=== PATIENT | female | born 1970 | race Two or more races ===

== ENCOUNTER 2024-11-07 10:12 | Inpatient (IN) | payer BC ==
[~2024-11-07] VITALS: Ht 162.6 cm; Wt 71.0 kg
[2024-11-07 11:39] LABS: BASOPHILS % 0.6 % (0.0-2.0); DIFFERENTIAL COMMENT 0; EOSINOPHILS % 2.2 % (0.0-5.0); HEMATOCRIT. 46.8 % (36.0-48.0); HEMOGLOBIN. 15.7 g/dL (12.0-16.0); LYMPHOCYTES % 28.4 % (20.0-50.0); MEAN CORPUSCULAR HEMOGLOBIN 33.1 pg (28.0-32.0); MEAN CORPUSCULAR HGB CONC 33.6 g/dL (31.0-37.0); MEAN CORPUSCULAR VOLUME 98.4 fL (81.0-99.0); MEAN PLATELET VOLUME 10.9 fl (7.4-10.4); MONOCYTES % 13.2 % (2.0-8.0); NEUTROPHILS % 55.6 % (40.0-76.0); PLATELET 183 x1000/uL (130-400); RED BLOOD CELL COUNT 4.75 mill/uL (4.2-5.4); RED CELL DISTRIBUTION WIDTH 13.5 % (11.6-14.6); WHITE BLOOD COUNT 8.5 x1000/uL (4.5-11.0)
[2024-11-07] MEDS: PREDNISONE 20MG TABLET PO ONE (11:43)
[2024-11-07 11:49] LABS: CHLORIDE 108 mEq/L (98-107); POTASSIUM 3.6 mEq/L (3.5-5.1); SODIUM 140 mEq/L (136-145)
[2024-11-07 11:50] LABS: CARBON DIOXIDE 25 mEq/L (21-32)
[2024-11-07 11:51] LABS: CALCIUM 9.1 mg/dL (8.7-10.4)
[2024-11-07 11:55] LABS: CREATININE 0.8 mg/dL (0.6-1.0); GLUCOSE 101 mg/dL (70-105); UREA NITROGEN BLOOD 12 mg/dL (9-23)
[2024-11-07 11:56] LABS: TROPONIN I HIGH SENSITIVITY 17 ng/L (3.0-34)
[2024-11-07] MEDS: FLUTICASONE PROPIONATE 50MCG/SPRAY BOTTLE BOTHNSTRLS STA (12:37)
[2024-11-07] MEDS ORDERED: ONDANSETRON HCL 4MG/2ML INJ IV PRN (13:00)
[2024-11-07] MEDS ORDERED: MAGNESIUM/ALUMINUM HYDROXIDE/SIMETHICONE 30ML UDC PO PRN (13:00)
[2024-11-07] MEDS ORDERED: IPRATROPIUM/ALBUTEROL 0.5-3(2.5)MG/3ML NEB HHN PRN (13:00)
[2024-11-07] MEDS ORDERED: DOCUSATE SODIUM 100MG CAPSULE PO PRN (13:00)
[2024-11-07] MEDS ORDERED: ACETAMINOPHEN 325MG TABLET PO PRN ×2 (13:00)
[2024-11-07] MEDS: METHYLPREDNISOLONE SOD SUCC 125MG/2ML (ACT-O-VIAL) IV SCH (14:28)
[2024-11-07 16:30] VITALS: BP 153/66; PULSE 84; RESP 18; TEMP 36.8; O2SAT 96
[2024-11-07 20:00] VITALS: BP 93/61; PULSE 64; RESP 20; TEMP 36.4; O2SAT 100
[2024-11-07 22:13] LABS: CREATINE KINASE MB FRACTION 13.8 ng/mL (0.5-3.6)
[2024-11-08] VITALS (8 sets, daily range): BP systolic 142–168; BP diastolic 59–69; PULSE 63–77; RESP 18–24; TEMP 34.8–37.1; O2SAT 94–100
[2024-11-08] MEDS: GUAIFENESIN 200MG/10ML SUGAR FREE UDC PO PRN (00:24)
[2024-11-08] MEDS: CLONIDINE 0.1MG TABLET PO PRN (00:34)
[2024-11-08] MEDS: BUDESONIDE 0.5MG/2ML NEB HHN SCH (01:00)
[2024-11-08] MEDS: IPRATROPIUM/ALBUTEROL 0.5-3(2.5)MG/3ML NEB HHN PRN (06:00)
[2024-11-08 06:52] LABS: HEMATOCRIT 46.6 % (36.0-48.0); HEMOGLOBIN 15.7 g/dL (12.0-16.0); MEAN CORPUSCULAR HEMOGLOBIN 32.9 pg (28.0-32.0); MEAN CORPUSCULAR HGB CONC 33.8 g/dL (31.0-37.0); MEAN CORPUSCULAR VOLUME 97.3 fL (81.0-99.0); PLATELET 199 x1000/uL (130-400); RED BLOOD CELL COUNT 4.79 mill/uL (4.2-5.4); RED CELL DISTRIBUTION WIDTH 13.3 % (11.6-14.6); WHITE BLOOD COUNT 9.6 x1000/uL (4.5-11.0)
[2024-11-08 07:00] LABS: CREATINE KINASE MB FRACTION 11.2 ng/mL (0.5-3.6)
[2024-11-08 07:01] LABS: TROPONIN I HIGH SENSITIVITY 8 ng/L (3.0-34)
[2024-11-08 07:04] LABS: T4 FREE 1.24 ng/dL (0.89-1.76); THYROID STIMULATING HORMONE 0.14 uIU/mL (0.55-4.78)
[2024-11-08 07:14] LABS: CHLORIDE 108 mEq/L (98-107); POTASSIUM 4.7 mEq/L (3.5-5.1); SODIUM 142 mEq/L (136-145)
[2024-11-08 07:16] LABS: CALCIUM 9.8 mg/dL (8.7-10.4); CARBON DIOXIDE 25 mEq/L (21-32)
[2024-11-08 07:20] LABS: UREA NITROGEN BLOOD 17 mg/dL (9-23)
[2024-11-08 07:21] LABS: CREATININE 0.8 mg/dL (0.6-1.0); GLUCOSE 127 mg/dL (70-105); TRIGLYCERIDE 48 mg/dL (0-150)
[2024-11-08 07:22] LABS: LDL CHOLESTEROL 102 mg/dL (5-100); PROTEIN TOTAL 7.1 g/dL (6.0-8.3)
[2024-11-08 07:23] LABS: ALANINE AMINOTRANSFERASE 13 IU/L (10-49); ALBUMIN 4.2 g/dL (3.2-4.8); ASPARTATE AMINOTRANSFERASE 18 IU/L (<34); BILIRUBIN TOTAL 0.2 mg/dL (0.1-1.0); CHOLESTEROL 194 mg/dL (<200); CREATINE KINASE 245 IU/L (34-145); HDL CHOLESTEROL 68 mg/dL (>65); PHOSPHORUS 3.3 mg/dL (2.5-4.9)
[2024-11-08] MEDS: AMLODIPINE 5MG TABLET PO SCH (08:40)
[2024-11-08] MEDS ORDERED: MONT-46 MT (15:27)
[2024-11-08] MEDS ORDERED: BUDE6.9H INH (15:27)
[2024-11-08] MEDS ORDERED: AMLO10TA4 MT (15:27)
[2024-11-08] MEDS: INFLUENZA VACCINE 05/PF 0.5 ML SYRINGE IM ONE (18:09)
== END 2024-11-08 18:45 | disposition home or self-care (01) | DRG 189 ==
LOC: ER 10:12 → 7WST 11:50
PROVIDERS: ADMIT Hospitalist; ATTEND Hospitalist
DX: J96.01 Acute respiratory failure with hypoxia (principal); J45.901 Unspecified asthma with (acute) exacerbation; I16.0 Hypertensive urgency; J44.89 Other specified chronic obstructive pulmonary disease; F17.210 Nicotine dependence, cigarettes, uncomplicated; I10 Essential (primary) hypertension; Z20.822 Contact with and (suspected) exposure to COVID-19
CPT/HCPCS: 36415; 71045; 80048; 80053; 80061; 82550; 82553; 83036; 83735; 83880; 84100; 84439; 84443; 84484; 85025; 85027; 87426; 87804; 90686; 93005; 93970; 94640; 94760; 99285; C1893; J2919; J7512; J7626

== ENCOUNTER 2025-01-14 09:35 | Emergency (ER) | payer BC ==
[~2025-01-14] VITALS: Ht 172.7 cm; Wt 70.0 kg
[~2025-01-14 09:35] MED LIST: AMLO10TA4 MT; BUDE6.9H INH; MONT-46 MT
[2025-01-14 09:37] VITALS: BP 159/75; TEMP 36.8
[2025-01-14] MEDS: PREDNISONE 20MG TABLET PO STA (10:29)
[2025-01-14] MEDS: IPRATROPIUM BROMIDE (0.02%) 0.5MG/2.5ML NEB HHN STA (10:37)
[2025-01-14 10:38] VITALS: PULSE 53; RESP 18; O2SAT 95
[2025-01-14] MEDS: ALBUTEROL (0.083%) 2.5MG/3ML NEB HHN STA (10:38)
== END 2025-01-14 11:33 | disposition home or self-care (01) ==
LOC: ER 09:35
DX: J06.9 Acute upper respiratory infection, unspecified (principal); B97.89 Other viral agents as the cause of diseases classified elsewhere; I10 Essential (primary) hypertension; J44.89 Other specified chronic obstructive pulmonary disease; F10.90 Alcohol use, unspecified, uncomplicated; F12.90 Cannabis use, unspecified, uncomplicated; Z79.51 Long term (current) use of inhaled steroids; Z79.899 Other long term (current) drug therapy; Y90.9 Presence of alcohol in blood, level not specified
CPT/HCPCS: 81025; 71045; 94640; 99283; J7512; Z7610 ×3; 94070

== ENCOUNTER 2025-09-06 01:42 | Inpatient (IN) | payer SELFPAY ==
[2025-09-06] VITALS (7 sets, daily range): BP systolic 125–171; BP diastolic 55–74; PULSE 61–87; RESP 16–27; TEMP 36.3–38.0304; O2SAT 93–97
[~2025-09-06] VITALS: Ht 162.6 cm; Wt 67.2 kg
[~2025-09-06 01:42] MED LIST changes: +AMLO-905 MT; -AMLO10TA4 MT
[2025-09-06 02:39] LABS: BASOPHILS % 0.5 % (0.0-2.0); EOSINOPHILS % 1.3 % (0.0-5.0); HEMATOCRIT. 44.5 % (36.0-48.0); HEMOGLOBIN. 14.6 g/dL (12.0-16.0); LYMPHOCYTES % 17.3 % (20.0-50.0); MEAN PLATELET VOLUME 11.1 fl (7.4-10.4); MONOCYTES % 10.6 % (2.0-8.0); NEUTROPHILS % 70.3 % (40.0-76.0); PLATELET 138 x1000/uL (130-400); RED BLOOD CELL COUNT 4.58 mill/uL (4.2-5.4); RED CELL DISTRIBUTION WIDTH 13.4 % (11.6-14.6)
[2025-09-06 02:49] LABS: CREATININE 1.0 mg/dL (0.6-1.0); UREA NITROGEN BLOOD 11 mg/dL (9-23)
[2025-09-06 02:50] LABS: TROPONIN I HIGH SENSITIVITY 17 ng/L (3.0-34)
[2025-09-06 02:51] LABS: ASPARTATE AMINOTRANSFERASE 17 IU/L (<34); BILIRUBIN DIRECT 0.1 mg/dL (<=3.0); BILIRUBIN TOTAL 0.4 mg/dL (0.1-1.0)
[2025-09-06 02:52] LABS: PROTEIN TOTAL 6.9 g/dL (6.0-8.3)
[2025-09-06] MEDS: AZITHROMYCIN 500MG/250ML 250 ML IV ONE (02:59)
[2025-09-06] MEDS: METHYLPREDNISOLONE SOD SUCC 125MG/2ML (ACT-O-VIAL) IV ONE (02:59)
[2025-09-06] MEDS: ALBUTEROL (0.083%) 2.5MG/3ML NEB HHN SCH (03:51)
[2025-09-06] MEDS ORDERED: IPRATROPIUM/ALBUTEROL 0.5-3(2.5)MG/3ML NEB HHN PRN (04:15)
[2025-09-06] MEDS ORDERED: MAGNESIUM/ALUMINUM HYDROXIDE/SIMETHICONE 30ML UDC PO PRN (04:15)
[2025-09-06] MEDS ORDERED: ACETAMINOPHEN 325MG TABLET PO PRN (04:15)
[2025-09-06] MEDS ORDERED: DOCUSATE SODIUM 100MG CAPSULE PO PRN (04:15)
[2025-09-06] MEDS: ACETAMINOPHEN 325MG TABLET PO PRN (06:22)
[2025-09-06] MEDS ORDERED: NICOTINE 14MG PATCH TD PRN (06:30)
[2025-09-06] MEDS: PANTOPRAZOLE SODIUM 40 MG/VIAL IV SCH (08:38)
[2025-09-06] MEDS: AMLODIPINE 10MG TABLET PO NR (08:40)
[2025-09-06] MEDS: PIPERACILLIN/TAZO 3.375G/50ML 50 ML IV SCH (09:21)
[2025-09-06 09:36] LABS: *AMPHETAMINES SCREEN URINE NEGATIVE (NEGATIVE); *BARBITURATES SCREEN URINE NEGATIVE (NEGATIVE); *BENZODIAZEPINES SCREEN URINE NEGATIVE (NEGATIVE); *COCAINE SCREEN URINE PRESUMPTIVE POSITIVE (NEGATIVE)
[2025-09-06 09:37] LABS: CANNABINOID URINE SCREEN NEGATIVE (NEGATIVE); ECSTASY MDMA SCREEN URINE NEGATIVE (NEGATIVE); METHADONE URINE SCREEN NEGATIVE (NEGATIVE); OPIATES URINE SCREEN NEGATIVE (NEGATIVE); PHENCYCLIDINE URINE SCREEN NEGATIVE (NEGATIVE)
[2025-09-06] MEDS: METHYLPREDNISOLONE SOD SUCC 40MG/ML (ACT-O-VIAL) IV SCH (10:54)
[2025-09-06] MEDS: ENOXAPARIN 40MG/0.4ML SYR SUBCUT SCH (10:56)
[2025-09-06 12:45] LABS: BG BASE EXCESS 1.6 mmol/L (-2.0-3.0); BG CARBOXYHEMOGLOBIN 2.7 % (0.5-1.5); BG DEOXYHEMOGLOBIN 7.1 % (0.0-5.0); BG FRACTION INSPIRED OXYGEN 21; BG HCO3 ACT 25.5 mmol/L (21.0-28.0); BG METHEMOGLOBIN 0.2 % (0.5-1.5); BG OXYGEN SATURATION 92.7 % (94.0-98.0); BG OXYHEMOGLOBIN 90.0 % (94.0-98.0); BG PCO2 38.3 mmHg (32.0-45.0); BG PH 7.442 (7.350-7.450); BG PO2 59.9 mmHg (83.0-108.0); BG SAMPLE SITE RIGHT RADIAL; BG TOTAL HEMOGLOBIN 16.0 g/dL (12.0-16.0); BG VENT MODE ROOM AIR
[2025-09-06 20:38] LABS: INFLUENZA TYPE A Presumptive Negative (Pres. Neg.); INFLUENZA TYPE B Presumptive Negative (Pres. Neg.); RESPIRATORY SYNCYTIAL VIRUS Not Detected (Not Detectd)
[2025-09-06] MEDS: GUAIFENESIN 600MG ER TABLET PO SCH (21:04)
[2025-09-06] MEDS: CLONIDINE 0.1MG TABLET PO PRN (21:04)
[2025-09-06] MEDS: IPRATROPIUM/ALBUTEROL 0.5-3(2.5)MG/3ML NEB HHN SCH (22:13)
[2025-09-07] VITALS (9 sets, daily range): BP systolic 114–144; BP diastolic 57–64; PULSE 60–79; RESP 16–24; TEMP 36.4–36.9; O2SAT 90–94
[2025-09-07] MEDS: AZITHROMYCIN 500MG/250ML 250 ML IV SCH (02:50)
[2025-09-07] MEDS ORDERED: AZITHROMYCIN 500MG/250ML 250 ML IV SCH ×2 (03:00)
[2025-09-07] MEDS: AMLODIPINE 10MG TABLET PO SCH (10:06)
[2025-09-07] MEDS ORDERED: AZIT250T12 MT (11:46)
[2025-09-07] MEDS ORDERED: METH4TAB95 MT (11:46)
[2025-09-07] MEDS ORDERED: BUDE90AE3 INH (11:46)
[2025-09-07] MEDS ORDERED: ALBU05 NEB (11:46)
[2025-09-07 13:08] LABS: CREATININE 1.0 mg/dL (0.6-1.0)
[2025-09-07 13:09] LABS: UREA NITROGEN BLOOD 18 mg/dL (9-23)
[2025-09-07 13:10] LABS: BASOPHILS % 0.3 % (0.0-2.0); EOSINOPHILS % 0.0 % (0.0-5.0); HEMATOCRIT. 42.8 % (36.0-48.0); HEMOGLOBIN. 14.3 g/dL (12.0-16.0); LYMPHOCYTES % 8.6 % (20.0-50.0); MEAN PLATELET VOLUME 11.8 fl (7.4-10.4); MONOCYTES % 7.0 % (2.0-8.0); NEUTROPHILS % 84.1 % (40.0-76.0); PHOSPHORUS 2.7 mg/dL (2.5-4.9); PLATELET 148 x1000/uL (130-400); RED BLOOD CELL COUNT 4.42 mill/uL (4.2-5.4); RED CELL DISTRIBUTION WIDTH 13.5 % (11.6-14.6)
[2025-09-08] MEDS ORDERED: AZITHROMYCIN 500MG/250ML 250 ML IV SCH (03:00)
== END 2025-09-07 15:24 | disposition home or self-care (01) | DRG 720 ==
LOC: ER 01:42 → 3WST 03:59 → EDBEDREQTM 04:04 → EDBEDREQ 04:04 → ENRESERV 05:18
PROVIDERS: ADMIT Internal Medicine; ATTEND Internal Medicine
DX: A41.9 Sepsis, unspecified organism (principal); J96.21 Acute and chronic respiratory failure with hypoxia; J44.1 Chronic obstructive pulmonary disease with (acute) exacerbation; I10 Essential (primary) hypertension; F17.210 Nicotine dependence, cigarettes, uncomplicated; F12.90 Cannabis use, unspecified, uncomplicated; F14.90 Cocaine use, unspecified, uncomplicated; Z79.51 Long term (current) use of inhaled steroids
CPT/HCPCS: 36415; 36600; 71045; 80048; 80076; 80305; 80320; 82375; 82805; 83735; 83880; 84100; 84484; 85025; 85379; 87420; 87804; 93005; 94070; 94640; 96365; 99285; A4606; J0456; J1650; J2470; J2543; J2919; G0480